=== PATIENT | female | born 1955 | race Caucasian/White ===

== ENCOUNTER 2018-07-23 17:53 | Emergency (ER) | payer OTHER ==
[2018-07-23 19:04] LABS: Absolute Lymphocytes (CBC) 2.1 K/uL (0.7-4.9); Absolute Monocytes 0.6 K/uL (0.1-1.3); Basophils % 1.3 % (0-1.3); Eosinophils % 6.2 % (0-4.4); Hematocrit 40.9 % (36.0-45.0); Lymphocytes % 28.7 % (15.3-44.8); MPV 7.8 fL (7.6-11.3); Monocytes % 8.6 % (3.3-12.3); RBC Red Blood Cell Count 4.42 M/uL (3.86-4.86)
[2018-07-23 19:05] LABS: Protime INR 0.94
[2018-07-23 19:23] LABS: ALT/SGPT 108 U/L (12-78); AST/SGOT 188 U/L (15-37); Albumin 3.6 g/dL (3.4-5.0); Alkaline Phosphatase 121 U/L (45-117); BUN Blood Urea Nitrogen 18 mg/dL (7-18); Bicarbonate 30 mmol/L (21-32); Bilirubin Direct 0.1 mg/dL (0-0.2); Bilirubin Total 0.3 mg/dL (0.2-1.0); Glucose Level 97 mg/dL (74-106); Lipase 155 U/L (73-393); Magnesium 2.3 mg/dL (1.8-2.4); NT PRO-BNP 56 pg/mL (<125); Potassium 4.5 mmol/L (3.5-5.1); Protein, Total 7.3 g/dL (6.4-8.2); Sodium Level 141 mmol/L (136-145); Troponin (Emerg Dept Use Only) < 0.02 ng/mL (0.0-0.045)
--- NOTE | 2018-07-23 19:40 | RAD REPORT ---
EXAM DESCRIPTION: RAD - Chest Single View - 07/23/2018 7:31 pm CLINICAL HISTORY: CHEST PAIN Chest pain. COMPARISON: CHEST PA AND LAT 2 VIEW dated 04/12/2011 FINDINGS: Portable technique limits examination quality. The lungs are grossly clear. The heart is normal in size. No displaced fractures. IMPRESSION: No acute intrathoracic process suspected.
--- NOTE | 2018-07-23 19:46 | EDPHYS ---
Physician Documentation [facility] Name: Iraida Kim Age: 63 yrs Sex: Female : 1955 Arrival Date: 07/23/2018 Time: 17:54 Bed 26 Private MD: Katerina Lutz C ED Physician Ilya Atkins HPI: 07/23 19:42 This 63 yrs old Female presents to ER via Ambulatory with complaints of Chest jr8 Pain, Epigastric Pain. 19:42 The patient or guardian reports chest pain that is located primarily in the substernal jr8 area, epigastric area. Onset: acutely, today. The pain radiates to back. Associated signs and symptoms: The patient has no apparent associated signs or symptoms. The chest pain is described as sharp, stabbing. Duration: The patient or guardian reports a single episode, that is now resolved. Modifying factors: The symptoms are alleviated by nothing. the symptoms are aggravated by nothing. Severity of pain: At its worst the pain was moderate in the emergency department the pain has resolved. The patient has not experienced similar symptoms in the past. The patient has not recently seen a physician. Historical: - Allergies: 18:12 No Known Allergies; ph - PMHx: 18:12 GERD; Hyperlipidemia; ph - PSHx: 18:12 ; Carpal Tunnel Repair; Knee surgery; ph - Immunization history:: Adult Immunizations up to date. - Social history:: Smoking status: Patient/guardian denies using tobacco. - Ebola Screening: : Patient negative for fever greater than or equal to 101.5 degrees Fahrenheit, and additional compatible Ebola Virus Disease symptoms Patient denies exposure to infectious person Patient denies travel to an Ebola-affected area in the 21 days before illness onset. ROS: 19:42 Eyes: Negative for injury, pain, redness, and discharge, ENT: Negative for injury, jr8 pain, and discharge, Neck: Negative for injury, pain, and swelling, Respiratory: Negative for shortness of breath, cough, wheezing, and pleuritic chest pain, Abdomen/GI: Negative for abdominal pain, nausea, vomiting, diarrhea, and constipation, Back: Negative for injury and pain, MS/Extremity: Negative for injury and deformity, Skin: Negative for injury, rash, and discoloration, Neuro: Negative for headache, weakness, numbness, tingling, and seizure. 19:42 Cardiovascular: Positive for chest pain, Negative for edema, orthopnea, palpitations, paroxysmal nocturnal dyspnea. Exam: 19:42 Eyes: Pupils equal round and reactive to light, extra-ocular motions intact. Lids and jr8 lashes normal. Conjunctiva and sclera are non-icteric and not injected. Cornea within normal limits. Periorbital areas with no swelling, redness, or edema. ENT: Nares patent. No nasal discharge, no septal abnormalities noted. Tympanic membranes are normal and external auditory canals are clear. Oropharynx with no redness, swelling, or masses, exudates, or evidence of obstruction, uvula midline. Mucous membranes moist. Neck: Trachea midline, no thyromegaly or masses palpated, and no cervical lymphadenopathy. Supple, full range of motion without nuchal rigidity, or vertebral point tenderness. No Meningismus. Cardiovascular: Regular rate and rhythm with a normal S1 and S2. No gallops, murmurs, or rubs. Normal PMI, no JVD. No pulse deficits. Respiratory: Lungs have equal breath sounds bilaterally, clear to auscultation and percussion. No rales, rhonchi or wheezes noted. No increased work of breathing, no retractions or nasal flaring. Abdomen/GI: Soft, non-tender, with normal bowel sounds. No distension or tympany. No guarding or rebound. No evidence of tenderness throughout. Back: No spinal tenderness. No costovertebral tenderness. Full range of motion. Skin: Warm, dry with normal turgor. Normal color with no rashes, no lesions, and no evidence of cellulitis. MS/ Extremity: Pulses equal, no cyanosis. Neurovascular intact. Full, normal range of motion. Neuro: Awake and alert, GCS 15, oriented to person, place, time, and situation. Cranial nerves II-XII grossly intact. Motor strength 5/5 in all extremities. Sensory grossly intact. Cerebellar exam normal. Normal gait. Vital Signs: 18:11 BP 147 / 85; Pulse 82; Resp 16; Temp 97.9; Pulse Ox 100% on R/A; Weight 63.5 kg; Height ph 5 ft. 3 in. (160.02 cm); Pain 5/10; 18:11 Body Mass Index 24.80 (63.50 kg, 160.02 cm) ph MDM: 18:29 Patient medically screened. jr8 19:43 Data reviewed: vital signs, nurses notes, lab test result(s), EKG, radiologic studies, jr8 plain films, and as a result, I will discharge patient. Data interpreted: Pulse oximetry: on room air is 100 %. Interpretation: normal. Counseling: I had a detailed discussion with the patient and/or guardian regarding: the historical points, exam findings, and any diagnostic results supporting the discharge/admit diagnosis, lab results, radiology results, the need for outpatient follow up, a family practitioner, to return to the emergency department if symptoms worsen or persist or if there are any questions or concerns that arise at home. ED course: Patient still remains asymptomatic. No acute findings on labs. Mild elevation in liver enzymes which is known to patient. History of VILLANUEVA. Recent GB US completed which showed sludge without any other acute findings. Will f/u with PCP. Will come back if worse . 07/23 18:29 Order name: Basic Metabolic Panel; Complete Time: 19:30 mg2 07/23 18:29 Order name: CBC with Diff; Complete Time: 19:09 mg2 07/23 18:29 Order name: LFT's; Complete Time: 19:30 mg2 07/23 18:29 Order name: Magnesium; Complete Time: 19:30 mg2 07/23 18:29 Order name: NT PRO-BNP; Complete Time: 19:30 mg2 07/23 18:29 Order name: PT-INR; Complete Time: 19:09 mg2 07/23 18:29 Order name: Troponin (emerg Dept Use Only); Complete Time: 19:30 mg2 07/23 18:29 Order name: PT-INR [facility] 07/23 18:29 Order name: Troponin (emerg Dept Use Only) [facility] 07/23 18:29 Order name: EKG; Complete Time: 18:30 mg2 07/23 18:29 Order name: Cardiac monitoring; Complete Time: 19:53 mg2 07/23 18:29 Order name: EKG - Nurse/Tech; Complete Time: 19:53 mg2 07/23 18:29 Order name: IV Saline Lock; Complete Time: 19:53 mg2 07/23 18:29 Order name: Labs collected and sent; Complete Time: 19:53 mg2 07/23 18:29 Order name: O2 Per Protocol; Complete Time: 19:53 mg2 07/23 18:29 Order name: O2 Sat Monitoring; Complete Time: 19:53 [facility] [place] 18:29 Order name: XRAY Chest (1 view); Complete Time: 19:42 [facility] 07/23 18:29 Order name: Cardiac monitoring; Complete Time: 19:52 8 07/23 18:29 Order name: EKG - Nurse/Tech; Complete Time: 19:52 8 07/23 18:29 Order name: IV Saline Lock; Complete Time: 19:52 07/23 18:29 Order name: Lipase; Complete Time: 19:30 07/23 19:47 Order name: Urine Dipstick--Ancillary (enter results); Complete Time: 02: eb 07/23 19:47 Order name: Urine --Ancillary (enter results); Complete Time: 02: 07/23 18:29 Order name: Labs collected and sent; Complete Time: 19:53 [facility] 07/23 18:29 Order name: O2 Per Protocol; Complete Time: :53 [facility] 07/23 18:29 Order name: O2 Sat Monitoring; Complete Time: :53 Administered Medications: No medications were administered Disposition: 07/24 09:51 Co-signature as Attending Physician, Ilya Atkins MD I agree with the assessment and saw plan of care. Disposition: 07/23/18 19:45 Discharged to Home. Impression: Chest pain, unspecified, Epigastric pain. - Condition is Stable. - Discharge Instructions: Nonspecific Chest Pain. - Medication Reconciliation Form, Thank You Letter, Antibiotic Education, Prescription Opioid Use form. - Follow up: Katerina Lutz MD; When: 2 - 3 days; Reason: Recheck today's complaints, Continuance of care, Re-evaluation by your physician. - Problem is new. - Symptoms have improved. Signatures: Dispatcher [employer] Ilya Madrid MD MD cha Roszak, Josh, PA PA jr8 Yvonne Quinteros, KAYLIE LOTT Phil Stanford, KAYLIE RN mg2 Sedrick Howard RN RN rv Corrections: (The following items were deleted from the chart) 07/23 18:33 18:30 BASIC METABOLIC PANEL+C.LAB.BRZ ordered. EDMS EDMS 18:33 18:30 CBC+H.LAB.BRZ ordered. EDMS EDMS 18:33 18:30 HEPATIC FUNCTION+C.LAB.BRZ ordered. EDMS EDMS 18:33 18:30 MAGNESIUM+C.LAB.BRZ ordered. EDMS EDMS 18:33 18:30 PROBNP+C.LAB.BRZ ordered. EDMS EDMS 18:35 18:30 Chest Single View+RAD.RAD.BRZ ordered. EDMS EDMS 19:48 19:43 ED course: Patient still remains asymptomatic. No acute findings on labs. Mild jr8 elevation in liver enzymes which is known to patient. History of VILLANUEVA. Will f/u with PCP. Will come back if worse . jr8 20:12 19:45 07/23/2018 19:45 Discharged to Home. Impression: Chest pain, unspecified; rv Epigastric pain. Condition is Stable. Forms are Medication Reconciliation Form, Thank You Letter, Antibiotic Education, Prescription Opioid Use. Follow up: A Lutz; When: 2 - 3 days; Reason: Recheck today's complaints, Continuance of care, Re-evaluation by your physician. Problem is new. Symptoms have improved. jr8
--- NOTE | 2018-07-23 19:46 | ER ---
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 Transition of care: patient was not received from another setting of care. Onset of symptoms was July 23, 2018. Risk Assessment: Do you want to hurt yourself or someone else? Patient reports no desire to harm self or others. Initial Sepsis Screen: Does the patient meet any 2 criteria? No. Patient's initial sepsis screen is negative. Does the patient have a suspected source of infection? No. Patient's initial sepsis screen is negative. Care prior to arrival: None. 18:09 Method Of Arrival: Ambulatory ph 18:09 Acuity: ALFREDO 3 ph Historical: - Allergies: 18:12 No Known Allergies; ph - PMHx: 18:12 GERD; Hyperlipidemia; ph - PSHx: 18:12 ; Carpal Tunnel Repair; Knee surgery; ph - Immunization history:: Adult Immunizations up to date. - Social history:: Smoking status: Patient/guardian denies using tobacco. - Ebola Screening: : Patient negative for fever greater than or equal to 101.5 degrees Fahrenheit, and additional compatible Ebola Virus Disease symptoms Patient denies exposure to infectious person Patient denies travel to an Ebola-affected area in the 21 days before illness onset. Screenin:10 Abuse screen: Denies threats or abuse. Denies injuries from another. Nutritional rv screening: No deficits noted. Tuberculosis screening: No symptoms or risk factors identified. Fall Risk None identified. Assessment: 20:10 General: Appears in no apparent distress. comfortable, Behavior is calm, cooperative. rv Pain: Complains of pain in chest Pain does not radiate. Pain began suddenly. Neuro: Level of Consciousness is awake, alert, obeys commands, Oriented to person, place, time, situation. Cardiovascular: Capillary refill < 3 seconds Rhythm is regular. Respiratory: Reports. Respiratory: Airway is patent. GI: No signs and/or symptoms were reported involving the gastrointestinal system. : No signs and/or symptoms were reported regarding the genitourinary system. EENT: No signs and/or symptoms were reported regarding the EENT system. Derm: Skin is intact. Vital Signs: 18:11 BP 147 / 85; Pulse 82; Resp 16; Temp 97.9; Pulse Ox 100% on R/A; Weight 63.5 kg; Height ph 5 ft. 3 in. (160.02 cm); Pain 5/10; 18:11 Body Mass Index 24.80 (63.50 kg, 160.02 cm) ph ED Course: 17:54 Patient arrived in ED. mr 17:54 Katerina Lutz MD is Private Physician. mr 18:11 Triage completed. ph 18:12 Arm band placed on. ph 18:29 Kristian Arceo PA is PHCP. jr8 18:29 Ilya Atkins MD is Attending Physician. jr8 18:57 Phil Stanford, KAYLIE is Primary Nurse. mg2 19:31 XRAY Chest (1 view) In Process Unspecified. EDMS 19:45 Katerina Lutz MD is Referral Physician. jr8 20:11 Patient has correct armband on for positive identification. Bed in low position. Call rv light in reach. Side rails up X 1. gambling monitor on. Pulse ox on. NIBP on. 20:11 No provider procedures requiring assistance completed. Patient did not have IV access rv during this emergency room visit. Patient maintains SpO2 saturation greater than 95% on room air. Administered Medications: No medications were administered Outcome: 19:45 Discharge ordered by . jr8 20:11 Discharged to home ambulatory. rv 20:11 Condition: good 20:11 Discharge instructions given to patient, Instructed on discharge instructions, follow up and referral plans. Demonstrated understanding of instructions, follow-up care. 20:12 Patient left the ED. rv Signatures: Dispatcher [employer] EDVT Oanh Montes mr Kristian Arceo PA PA jr8 Yvonne Quinteros RN RN Phil Stanford RN RN [facility] Sedrick Howard RN RN rv
[2018-07-23 20:09] LABS: Urine Blood TRACE (NEG); Urine Glucose NEGATIVE (NEG); Urine Protein NEGATIVE (NEG)
--- NOTE | 2018-07-24 08:36 | EKG ---
Test Date: 2018-07-23 Test Time: 17:42:57 [employer] Bleacher: MG MEASUREMENT RESULTS: Intervals: Rate: 67 IN: 148 QRSD: 78 QT: 406 QTc: 429 [place]: P: 62 IN: 148 QRS: 61 T: 51 INTERPRETIVE STATEMENTS: Normal sinus rhythm Normal ECG Compared to ECG 12/17/2002 10:05:00 Sinus bradycardia no longer present Electronically Signed On 07-24-18 08:35:39 CDT by Chaka Dewitt
== END 2018-07-23 20:12 | disposition home or self-care (01) ==
LOC: ER 17:53
DX: R10.13 Epigastric pain (principal)
CPT/HCPCS: 36415; 71045; 80048; 80076; 81003; 81025; 83690; 83735; 83880; 84484; 85025; 85610; 93005; 99284

== ENCOUNTER 2024-07-27 00:52 | Emergency (ER) | payer OTHER ==
--- OUTSIDE RECORDS SUMMARY | 2024-07-27 00:56 | XMS REPORT | Continuity of Care Document ---
Author Name Unknown Address [address] [facility]. [address] [place] [address] Organization [facility] Address [address] [facility] 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 Name Role Phone GC_GCBZW_Kadiyala_S Attending Clinician Unavaila Florina Munoz Attending Clinician Unavaila merna GC_GCBZW_Kadiyala_S Admitting Clinician Unavaila Florina Munoz Admitting Clinician Unavaila merna Payers Payer Name Policy Type Policy Number Effective Date Expirati on Date Source [employer] (MEDICARE REPLACEMENT PPO) [id number] 2022 00:00:00 Problems Condition Name Condition Details Condition Category Status Onset Date Resolution Date Last Treatment Date Treating Clinician Comments Source Genital herpes simplex Genital Herpes Simplex Problem Active 2022-05 004 00:00: 00 [facility] Constipati on Constipati on Problem Active 01-31 00:00: 00 [facility] Female stress incontinen ce Female Stress Incontinen ce Problem Active 12-21 00:00: 00 [facility] Atrophy of vagina Atrophy of Vagina Problem Active 8 00:00: 00 [facility] Hyperlipid emia Hyperlipid emia Problem Active 8 00:00: 00 [facility] Gastroesop hageal reflux disease Gastroesop hageal Reflux Disease Problem Active 8-07 00:00: 00 [facility] Osteopenia Osteopenia Problem Active 8-07 00:00: 00 [facility] Incomplete uterovagin al prolapse Incomplete Uterovagin al Prolapse Problem Active 12-03 00:00: 00 [facility] Urinary incontinen ce Urinary Incontinen ce Problem Active 12-03 00:00: 00 [facility] Midline cystocele Midline Cystocele Problem Active 5- 00:00: 00 [facility] Senile osteoporos is Senile Osteoporos is Problem Active 5- 00:00: 00 [facility] Anogenital herpesvira l infection Anogenital Herpesvira l Infection Problem Active 01-15 00:00: 00 [facility] Atrophic vaginitis Atrophic Vaginitis Problem Active 5-05 00:00: 00 [facility] Bone density finding Bone Density Finding Problem Active 5- 00:00: 00 [facility] Screening mammograph y Screening Mammograph y Problem Active 5-05 00:00: 00 [facility] Allergies, Adverse Reactions, Alerts Allergy Name Allergy Type Status Severity Reaction(s) Onset Date Inactive Date Treating Clinician Comments Source No Known Allergie s DA Active U 318 00:00: [address] [facility] Chlorhex idine Allergy to substanc e Active Rash [facility] Social History Smoking Status Start Date Stop Date Source Never Smoker [facility] Medications Ordered Medication Name Filled Medication Name Start Date Stop Date Current Medication? Ordering Clinician Indication Dosage Frequency Signature (SIG) Comments Components Source biotin biotin No biotin [facility] calcium calcium No calcium [facility] esomeprazol e magnesium 20 mg capsule,del ayed release Take 1 capsule every day by oral route. esomeprazol e magnesium 20 mg capsule,del ayed release Take 1 capsule every day by oral route. No 1capsul e(s) Q1D esomeprazo le magnesium 20 mg capsule,de layed release Take 1 capsule every day by oral route. [facility] montelukast 10 mg tablet Take 1 tablet as needed by oral route. montelukast 10 mg tablet Take 1 tablet as needed by oral route. No 1 montelukas t 10 mg tablet Take 1 tablet as needed by oral route. [facility] Yuvafem 10 mcg vaginal tablet INSERT 1 TABLET VAGINAL TWO TIMES A WEEK X 90 DAY(S) Yuvafem 10 mcg vaginal tablet INSERT 1 TABLET VAGINAL TWO TIMES A WEEK X 90 DAY(S) No Yuvafem 10 mcg vaginal tablet INSERT 1 TABLET VAGINAL TWO TIMES A WEEK X 90 DAY(S) [facility] multivitami n multivitami n No multivitam in [facility] rosuvastati n rosuvastati n No rosuvastat in [facility] Zyrtec Zyrtec No Zyrtec [facility] Vital Signs Vital Name Observation Time Observation Value Comments S ource Height 2024-01-11 00:00:00 62 [facility] Systolic 2024-01-11 00:00:00 106 mm[Hg] [facility] BP Diastolic 2024-01-11 00:00:00 69 mm[Hg] [facility] BMI (Body Mass Index) 2024-01-11 00:00:00 24.2 kg/m2 [facility] Body Weight 2024-01-11 00:00:00 132.2 [lb_av] [facility] Procedures Procedure Date / Time Performed Performing Clinicia n Source MAMMO, screening, digital, bilateral 2024-01-11 00:00:00 [facility] Procedure on Shoulder 2023-09-14 00:00:00 [facility] Hysterectomy 2023-02-24 00:00:00 [facility] Cystoscopy 2022-12-03 00:00:00 [facility] Oral / Dental Surgery 2022-08-14 00:00:00 [facility] Orthopedic - Knee Replacement [facility] Carpal Tunnel Surgery [facility] Delivery [facility] ical Encounters Start Date/Time End Date/Time Encounter Type Admission Type Attending Clinicians Care Facility Care Department Encounter ID Source 2024-01-11 00:00:00 2024-01-11 00:00:00 MICHELLE Stoner: Michelle Price, [address], [place] [address] , Ph. [facility] - GC_GCBZW_Bere villegas Christian* [id number] [facility] 2023-07-13 00:00:00 2023-07-13 00:00:00 Outpatient GC_GCBZW_Ka diyala_S PRIV PRIV [id number] [facility] 2023-07-13 00:00:00 2023-07-13 00:00:00 MICHELLE Stoner: Michelle Price, [address], [place] [address] , Ph. [facility] - GC_GCBZW_Bere [facility]* [id number] [facility] 2023-07-12 00:00:00 2023-07-12 00:00:00 Outpatient GC_GCBZW_Ka diyala_S PRIV PRIV [id number] [facility] 2023-04-12 00:00:00 2023-04-12 00:00:00 Outpatient GC_GCBZW_Ka diyala_S PRIV PRIV [id number] [facility] 2023-03-02 00:00:00 2023-03-02 00:00:00 Outpatient GC_GCBZW_Ka diyala_S PRIV PRIV [id number] [facility] 2023-03-02 00:00:00 2023-03-02 00:00:00 Outpatient GC_GCBZW_Ka diyala_S PRIV PRIV [id number] [facility] 2023-02-24 05:26:00 2023-02-25 11:01:00 Inpatient Florina Hernandez [facility].01 [id number] 68 [facility] 2023-02-16 00:00:00 2023-02-16 00:00:00 Outpatient GC_GCBZW_Ka diyala_S PRIV PRIV [id number] [facility] 2023-02-16 00:00:00 2023-02-16 00:00:00 Outpatient GC_GCBZW_Ka diyala_S PRIV PRIV [id number] [facility] 2023-02-07 00:00:00 2023-02-07 00:00:00 Outpatient GC_GCBZW_Ka diyala_S PRIV PRIV [id number] [facility] 2023-01-31 00:00:00 2023-01-31 00:00:00 Outpatient GC_GCBZW_Ka diyala_S PRIV PRIV [id number] [facility] 2023-01-31 00:00:00 2023-01-31 00:00:00 Outpatient GC_GCBZW_Ka diyala_S PRIV PRIV [id number] [facility] 2022-12-21 00:00:00 2022-12-21 00:00:00 Outpatient GC_GCBZW_Ka diyala_S PRIV PRIV [id number] [facility] 2022-12-03 00:00:00 2022-12-03 00:00:00 Outpatient GC_GCBZW_Ka diyala_S PRIV PRIV [id number] [facility] 2022-12-03 00:00:00 2022-12-03 00:00:00 Outpatient GC_GCBZW_Ka diyala_S PRIV PRIV [id number] [facility] Results Test Description Test Time Test Comments Results Result Co mments Source [id number] 05:21:00* Test Item Value Reference Range Interpretation Comme nts CREATININE (test code = CREAT) 0.9 MG/DL 0.6-1.0 N Comment: Stat creatinine if not already performedCBC W/AUTO [id number] 05:10:00* Test Item Value Reference Range Interpretation Comme nts WHITE BLOOD CELL (test code = WBC) 11.2 K/mm3 3.5-11.0 H RED BLOOD CELL (test code = RBC) 3.73 M/mm3 4.70-6.10 L HEMOGLOBIN (test code = HGB) 11.4 G/DL 10.4-14.9 N HEMATOCRIT (test code = HCT) 35.0 % 31.5-44.1 N MEAN CELL VOLUME (test code = MCV) 93.8 Fl 84.5-98.6 N MEAN CELL HGB (test code = MCH) 30.6 pg 27.0-34.2 N MEAN CELL HGB CONCETRATION (test code = MCHC) 32.6 G/DL 31.5-34.0 N RED CELL DISTRIBUTION WIDTH (test code = RDW) 12.5 SD 11.5-14.5 N PLATELET COUNT (test code = PLT) 234 K/mm3 150-450 N MEAN PLATELET VOLUME (test c ode = MPV) 9.70 fL 7.0-10.5 N NEUTROPHIL % (test code = NT%) 78.8 % 40-76 H IMMATURE GRANULOCYTE % (test code = IG%) 0.4 % 0.0-5.0 N LYMPHOCYTE % (test code = LY%) 13.7 % 20.5-51.1 L MONOCYTE % (test code = MO%) 6.6 % 1.7-9.3 N EOSINOPHIL % (test code = EO%) 0.3 % 0.0-6.0 N BASOPHIL % (test code = BA%) 0.2 % 0.0-2.0 N NUCLEATED RBC % (test code = NRBC%) 0.0 /100WBC% 0.0-1.0 N NEUTROPHIL # (test code = NT#) 8.8 K/mm3 1.8-7.6 H IMMATURE GRANULOCYTE # (test code = IG#) 0.04 x10 3/uL 0.00-0.03 H LYMPHOCYTE # (test code = LY#) 1.5 K/mm3 0.6-3.2 N MONOCYTE # (test code = MO#) 0.7 K/mm3 0.3-1.1 N EOSINOPHIL # (test code = EO#) 0.0 K/mm3 0.0-0.4 N BASOPHIL # (test code = BA#) 0.0 K/mm3 0.0-0.1 N NUCLEATED RBC # (test code = NRBC#) 0.0 K/mm3 0.0-0.1 N MANUAL DIFF REQUIRED (test c ode = MDIFF) NO DIFF/SCN CRITERIA BASIC METABOLIC [id number] 15:27:00* Test Item Value Reference Range Interpretation Comme nts SODIUM (test code = NA) 141 mmol/L 134-147 N POTASSIUM (test code = K) 3.3 mmol/L 3.4-5.0 L CHLORIDE (test code = CL) 106 mmol/L 100-108 N CARBON DIOXIDE (test code = CO2) 30 mmol/L 21-32 N ANION GAP (test code = GAP) 5.0 GAP calc 4.0-15.0 N GLUCOSE (test code = GLU) 109 MG/DL 70-110 N BLOOD UREA NITROGEN (test code = BUN) 21 MG/DL 7-18 H GLOMERULAR FILTRATION RATE (test code = GFR) >=60 max estimate estGFR >60 The Glomerular Filtration Rate is a calculated parameterbased on serum Creatinine, patient age and sex. GFR valuesless than 60 mL/min/1.73 square meters are indicative ofChronic Kidney Disease. Values less than 15 mL/min/1.73square meters indicate Kidney failure. The calculation forGFR is based on the CKD-EPI (202) calculation. This formulais race indifferent and is the recommended formula for GFRby the National Kidney Foundation for Adults.The GFR will not calculate if the sex is unknown or if thepatient's age is <18 years. CREATININE (test code = CREAT) 1.0 MG/DL 0.6-1.0 N CALCIUM (test code = CA) 9.1 MG/DL 8.5-10.1 N CBC W/AUTO [id number] 14:43:00* Test Item Value Reference Range Interpretation Comme nts WHITE BLOOD CELL (test code = WBC) 6.0 K/mm3 3.5-11.0 N RED BLOOD CELL (test code = RBC) 4.22 M/mm3 4.70-6.10 L HEMOGLOBIN (test code = HGB) 12.8 G/DL 10.4-14.9 N HEMATOCRIT (test code = HCT) 39.8 % 31.5-44.1 N MEAN CELL VOLUME (test code = MCV) 94.3 Fl 84.5-98.6 N MEAN CELL HGB (test code = MCH) 30.3 pg 27.0-34.2 N MEAN CELL HGB CONCETRATION (test code = MCHC) 32.2 G/DL 31.5-34.0 N RED CELL DISTRIBUTION WIDTH (test code = RDW) 12.3 SD 11.5-14.5 N PLATELET COUNT (test code = PLT) 278 K/mm3 150-450 N MEAN PLATELET VOLUME (test c ode = MPV) 9.40 fL 7.0-10.5 N NEUTROPHIL % (test code = NT%) 65.2 % 40-76 N IMMATURE GRANULOCYTE % (test code = IG%) 0.2 % 0.0-5.0 N LYMPHOCYTE % (test code = LY%) 24.5 % 20.5-51.1 N MONOCYTE % (test code = MO%) 6.4 % 1.7-9.3 N EOSINOPHIL % (test code = EO%) 2.9 % 0.0-6.0 N BASOPHIL % (test code = BA%) 0.8 % 0.0-2.0 N NUCLEATED RBC % (test code = NRBC%) 0.0 /100WBC% 0.0-1.0 N NEUTROPHIL # (test code = NT#) 3.9 K/mm3 1.8-7.6 N IMMATURE GRANULOCYTE # (test code = IG#) 0.01 x10 3/uL 0.00-0.03 N LYMPHOCYTE # (test code = LY#) 1.5 K/mm3 0.6-3.2 N MONOCYTE # (test code = MO#) 0.4 K/mm3 0.3-1.1 N EOSINOPHIL # (test code = EO#) 0.2 K/mm3 0.0-0.4 N BASOPHIL # (test code = BA#) 0.1 K/mm3 0.0-0.1 N NUCLEATED RBC # (test code = NRBC#) 0.0 K/mm3 0.0-0.1 N MANUAL DIFF REQUIRED (test c ode = MDIFF) NO DIFF/SCN CRITERIA PROTHROMBIN [id number] 14:43:00* Test Item Value Reference Range Interpretation Comme nts PT PATIENT (test code = PTP) 10.9 SECONDS 9.3-12.9 N INTERNATIONAL NORMAL RATIO (test code = INR) 0.98 INR Unit 0.8-1.2 N TARGET INR BY INDICATION Indication INR1. Prophylaxis of venous thrombosis 2.0 - 3.0 (orthopedic surgery), Prophylaxis of venous thrombosis (other than high-risk surgery), Treatment of Deep Vein Thrombosis/Pulmonary Embolism, Prevention of systemic embolism - Tissue heart valves, Acute Myocardial Infarction (to prevent systemic embolism), Valvular heart disease, Acute Myocardial Infarction (to prevent systemic embolism), Valvular heart disease, Atrial Fibrillation, Bileaflet mechanical valve in aortic position.2. Mechanical prosthetic valves (high risk), 2.5 - 3.5 Presence of Lupus Anticoagulant or Antiphospholipid Antibodies, Prevention of systemic embolism - Acute Myocardial Infarction (to prevent recurrent infarct). Comment: PREOPTHROMBOPLASTIN TIME [id number] 14:43:00* Test Item Value Reference Range Interpretation Comme nts THROMBOPLASTIN TIME PARTIAL (test code = PTT) 34.4 SECONDS 26-35 N Comment: PREOP- XR CHEST 1 [id number] 14:28:[address] [facility] 1955 Sex: F Name: KINGSTON GOULD [facility] : 1955 Age/S: 67 / F [id number] Unit #: [id number] Loc: [place] [address] Phys: Nagi Bell MD Acct: [id number] Dis Date: Status: PRE [facility] PHONE #: [phone] Exam Date: 02/21/2023 1420 FAX #: Reason: PREOP EXAMS: CPT: [id number] XRCHEST 1 V [id number] Fluoro Time: DAP (Gy m2): Air Kerma (mGy): EXAM: - XR CHEST 1 V HISTORY: PREOP LOCATION CODE:T18 TECHNIQUE: Frontal radiograph of the chest. COMPARISON: None. FINDINGS: Normal heart size. No focal airspace consolidation. No pulmonary edema, pleural effusion or pneumothorax. Imaged osseous structures are without acute abnormality. IMPRESSION: No radiographic evidence of acute cardiopulmonary disease. at 1428 Reported and signed by: Jamal Quesada M.D. CC: Florina Duval MD; Nagi Bell MD PAGE 1 SignedReport Name: KINGSTON GOULD [facility] : 1955 Age/S: 67 / F [id number] [id number] Loc: [place] [address] Phys: Nagi Bell MD Acct: [id number] Dis Date: Status: PRE SDC PHONE #: [phone] Exam Date: 02/21/2023 1420 FAX #: Reason: PREOP EXAMS: CPT: [id number] XR CHEST 1 V [id number] Fluoro Time: DAP (Gy m2): Air Kerma (mGy): (Continued) Technologist: Karolyn Pelaez Trnscb Date/Time: 02/21/2023 (1427) [id number] Orig Print D/T: S: 02/21/2023 (3682) PAGE 2 Signed ReportUR HCG QUAL 2023-02-21 14:26:00* Test Item Value Reference Range Interpretation Comme nts UR HCG QUAL (test code = HCGQLU) NEGATIVE NEGATIVE Notes Date/Time Note Provider Source 2023-02-27 16:38:00 [id number] [facility] [address] [place] [address] PATIENT NAME: KINGSTON GOULD ADMIT DATE: 02/24/23 ACCOUNT NO: [id number] ROOM NO: [id number] AGE: 67 REPORT TYPE: OPERATIVE REPORT SEX: F ADMITTING PHYSICIAN: Florina Duval MD ATTENDING PHYSICIAN: Florina Duval MD OPERATION DATE: 02/24/2023 PREOPERATIVE DIAGNOSES: Stage II uterovaginal prolapse, posterior wall prolapse. POSTOPERATIVE DIAGNOSES: Stage II uterovaginal prolapse, posterior wall prolapse, anterior wall apical, lateral wall defects, posterior wall defect and perineal defect, pericolic adhesions and periappendiceal adhesions. PROCEDURES PERFORMED: 1. Robotic-assisted total laparoscopic hysterectomy, bilateral salpingo-oophorectomy. 2. Laparoscopic sacral colpopexy. 3. Lysis of adhesions from the cecum, sigmoid, small bowel, appendix, cystoscopy. 4. Posterior repair and perineorrhaphy. SURGEON: Florina Duval MD CHIMNEY MECHANIC: Antonieta Cat. ANESTHESIA: General endotracheal. FINDINGS: Adhesions of the cecum, appendix ____ sigmoid. POP-Q -2, -2, 0, 3.5, moderate 0, -1, -3 while the patient down under anesthesia. Patent ureters on cystoscopy, ____ was placed and tacked to the anterior ____. Posterior wall site specific defect repair was performed. COMPLICATIONS: No complications. ESTIMATED BLOOD LOSS: 50 mL. SPECIMENS: Uterus, tubes and ovaries. DRAINS: Wheeler catheter and vaginal packing was placed. IMPLANTS: Upsylon Y mesh. FLUIDS: 1500 mL. URINE OUTPUT: 150 mL PATIENT NAME: KINGSTON GOULD APPROACH: Robotic, laparoscopic and vaginal. COUNTS: Correct. PATIENT'S CONDITION: Stable. INDICATIONS: The patient is a longstanding patient ____ with prolapse. She has been treated conservatively with pelvic floor therapy with bowel management, still continues to suffer from constipation and occasional straining. Other than this, her prolapse has been symptomatic and we discussed about benefits, risks of surgery and she has contemplated for good period of time. Eventually, she desired a surgery with at least recurrence, did not have any strong reservations to vaginal mesh and all the benefits, risks, and complications, longevity of the repair compared to the side effects and complications were discussed and she wanted to ____ for reliable otherwise with a sacral colpopexy. On urodynamic testing, no occult JANA was noted; however, she was consented for a possible sling ____ prolapse repair. There was evidence of stress incontinence. Then, she also was consented for posterior wall defect repair and perineorrhaphy. She was consented and brought to the OR. Her was present by the side in the preoperative area. After questions and answers were done to their satisfaction, she was taken back. DESCRIPTION OF PROCEDURE: She was placed in supine fashion on the operating table. General anesthesia was given. She was placed in dorsal lithotomy position using Imcah stirrups. Abdomen prepped with ChloraPrep. Vulva, vagina, and perineum with Betadine. She was draped in a sterile fashion. Arms tucked by the side. Positioning was checked. SCDs were started. Timeout was done. Speculum was placed to expose the cervix. Anterior lip was grasped with a single tooth tenaculum, dilated to 16-Maltese and a medium VCare was introduced and cup was fixed in place. Wheeler was placed to drain the bladder and attached to drainage bag and left to gravity. This area was draped. A 1 cm supraumbilical incision was made with a scalpel using open laparoscopy technique. Fascia was incised, tagged with 0 Vicryl sutures. Peritoneum entered sharply. Breann was introduced and site of entry was checked and was unremarkable. There was significant amount of bowel adhesions in the lower right and left quadrants. Robotic ports were placed, arms 3 and 4 on the right and arm 1 and assist port on the left. All trocars were placed under direct vision. The patient was placed in Trendelenburg position at 21 degrees and then the robot was docked on the patient's left attached to the port #2. Once the camera was introduced and targeting was performed, all the ports were connected. Instruments were placed appropriately and inserted to the pelvis under direct vision. Bipolar fenestrated grasper through arm #1 and scissors through arm #3 and cardia forceps through arm #4 were placed. I went to the console and started the lysis of adhesions. Lysis of adhesions: The right lower quadrant was well visualized. Small bowel was retracted from the pelvic cavity to the upper abdomen. Then, carefully the cecal adhesions were taken down systematically with sharp scissors all the way in the right lower quadrant to the right paracolic gutter. Adhesions were taken down sharply using cautery in a very spared manner. PATIENT NAME: KINGSTON GOULD The small bowel, which is a terminal ileum was also attached to the right lower quadrant. The ureter was visualized and ____ were taken down systematically with sharp scissors. Once all this was done, hemostasis was secured and ____ with the right lower quadrant and sigmoid adhesions were taken down to expose the ____. Once all these were done, the bowel was slipped to the upper abdomen, I needed 21 degrees of Trendelenburg. The above took at least 30-40 minutes of the case. Hysterectomy. The round ligament was picked up with the cardia and lateral peritoneum was incised parallel to the IP ports in the anterior and posteriorly. Dissection was performed between the IP and the lateral wall and between the ureter. The pedicle was isolated and round ligament pedicle was also isolated by incising the anterior leaf of the broad ligament inferior to the round ligament on the right side. Once this pedicle was isolated, I went over to the opposite side, we proceeded in the left direction of the round ligament, IP ligament exposing the IP and ureters were safe guarded. The ligaments were cauterized and cut with bipolar and taken down with monopolar scissors. IP taken down first, round ligament next and posterior peritoneum incised all the way to the distal part of the cup. The left uterosacral ligament was very visible and it was a good target for suspension. However, on the right side, it was not visible, very difficult to identify and grasp it as it had detached and it was very lax. Anterior peritoneum opened up to the bladder flap. Bladder flap was created with monopolar scissors. Then, bladder was dissected anteriorly from the anterior vaginal wall. Vessels were isolated laterally and they were taken down with the help of the bipolar grasper and monopolar scissors. Then, anterior and posterior colpotomies were performed. Then, circumferentially vessels were taken down and the fascia was cut. Circumferential colpotomy was completed and specimen pulled out through the vagina, tubes, and ovaries and the vaginal occluder was placed. Thorough irrigation and suction of the pelvis was performed. Hemostasis was secured with the bipolar. Two angle sutures were placed with 1 Vicryl. Another simple suture was placed on the right lateral aspect immediately medial to the 1 Vicryl stitch with 1 Vicryl. Then, 2-0 V-Loc was used to close the entire vaginal cuff in 2 layers imbricating the first layer with the second one, but grasping both connective tissue as well as the vaginal epithelium. There was an excellent closure and thorough hemostasis. Sacral colpopexy dissection of the anterior vaginal wall: The bladder was picked up gently with the help of Faisal, retrograde filled with 100 mL of normal saline. Dissection was carried between the anterior vaginal wall without entering the vesicovaginal space, keeping the vaginal dissection thick and then opening up the bladder plain and the bladder from the anterior vaginal wall in the midline first, then laterally, windows were made and mostly scissors were used to cut occasionally using monopolar and bipolar cautery for hemostasis. Once 3.5 cm of the anterior vaginal wall was exposed, then the dissection was complete. Posterior vaginal dissection: The peritoneum was retracted inferiorly. Incision made between the vaginal wall and the rectovaginal in the cul-de-sac. The peritoneum was taken down, staying close to the posterior vaginal wall and PATIENT NAME: KINGSTON GOULD the loose areolar tissue. The dissection was performed in an avascular plane going down in the midline for at least 7 cm. Once I was able to get for this down, then laterally dissection was carried at least for 5-6 cm wide. Once all the rectum was dropped down, then attention was directed to dissection at the sacrum. Sacral dissection: The bowel and the mesentery were picked up immediately lateral to the area of S1 after the common iliac and the ureters were identified on the right side and laterally, the bowel and the middle sacral vessels were seen making a peritoneal incision superficially in this area. The gas was dissected the loose areolar tissue giving me entry to the anterior longitudinal ligament. Once this was visualized, more dissection was performed carefully without serving any presacral nerves to get to the anterior ligament, at least 1.5 cm space was created, entered vertically as well as horizontally. Then, the incision on the peritoneum was carefully kept superficial, dissection opened up with scissors and then cut with cold scissors all the way down, staying between the right lateral wall of the rectum/sigmoid colon and the right ureter passing the area of the uterosacral ligament to connect the dissection to the posterior wall vaginal dissection. The space was lined up with gentle traction on each side to the flaps, then Y mesh was trimmed. A 5 cm of the anterior arm and 8 cm of the posterior arm were trimmed with 7 cm to be tacked. The mesh was brought in. Anterior arm was attached first in the midline distal with a 2-0 Vicryl stitch on a CT-2 needle, then proximal and middle suture was placed and laterally, 2 sutures each next to the Vicryl sutures. Once these were all placed, the anterior arm was well fixated from end to end and from top down. At least 1.5 cm of the mesh was still in the area to give redundancy to the vaginal apex, so it is not touching the junction of the anterior, posterior arms. Posteriorly, the arm was opened up and similar sutures were placed distally with 2-0 Vicryl proximally at the area below the cuff line. The suture was placed. Then, 2 sutures lateral to each of them and then 2 center sutures were placed to lay the mesh completely flat and make it remain attached to the fascia. Once this was done, the sacral arm was rolled up. The sacrum was well visualized. Tensioning was performed at least by holding 5-6 cm of the arm at the level of the sacrum and allowing the vaginal retractor to come out. There was excellent lift without too much tension on the sacral arm, however, with adequate tension, so this was the area that was marked. Then, 2-0 Ethibond suture was brought in x2 and placed in the mesh anterior longitudinal ligament and back through the mesh. This was tied down using 2 sliding knots and then secured with the help of square knots. Similar suture was placed proximally to this as well to secure the mesh again in the center and once this was done, the extra mesh was trimmed. Thus, the mesh was buried underneath and keeping it to lay flat. Then, 2-0 V-Loc was taken and starting at the level of the uterosacral. The peritoneum was closed first and then ran this in a continuous running fashion all the way to the top of the sacrum on the peritoneum. Then, inferiorly, the same suture was started in the left lateral angle and anterior, posterior peritoneum were brought together to conceal the entire mesh from lateral to medial, from left to right and then completed at the area where the top stitch was started. PATIENT NAME: KINGSTON GOULD Retroperitonealization: There is no evidence of any exposure to the mesh. Thorough irrigation and suction were performed. There was excellent hemostasis on all pedicles. All the arms were undocked. Once they were freed up under direct visualization, the instruments were removed. The ports were removed. Gas was desufflated. Supraumbilical trocar was removed. Fascia was tied together to close the fascial incision and skin incisions closed with interrupted 4-0 Monocryl and bandages placed. Cystoscopy was performed after removing the Wheeler with excellent patency of the ureters with good jets of urine. No evidence of any foreign body or mesh in the bladder or sutures. No evidence of any other problems. The bladder was filled with 300 to perform a Valsalva under anesthesia. Once this was done, there was no leakage. No hypermobility of the urethra, good support at the neck. Wheeler was reintroduced and clamped and retracted superiorly. Posterior repair was performed. A felisa-shaped incision that was made with detachment of the distal rectovaginal septum from the perineal body in a Y shaped fashion, so after injecting 1% lidocaine with epinephrine 20 mL in the lower one-third of the vaginal wall and the perineum. Felisa-shaped incision was made and the epithelium was then taken down. Fascia was exposed. Flaps were raised the vaginal epithelium from the underlying connective tissue superiorly all the way and then down laterally to expose the perineal body structures. The perineal body structures were reconstructed with the help of interrupted and continuous 2-0 Vicryl sutures from [id number] in 2 layers. Then, superiorly the rectovaginal septum distal part was pulled down and attached in the continuous running fashion with the help of 2-0 Vicryl from [id number]. Once this was done, there was excellent continuation. However, the lower one-third that did not have any mesh because the mesh repair stopped in the junction between the lower one-third and the upper two-thirds, but this fascia was intact and it appeared that the colpopexy mesh was attached to the top of the fascia and now the distal part of the fascia was reattached to perineal body, so there is good ____. Vaginal epithelium was closed with the help of 2-0 Vicryl suture in a continuous running fashion. Perineorrhaphy was performed as I dictated. The Wheeler was left in place. Vaginal packing was inserted. She was recovered from anesthesia and taken to PACU in stable condition and her was debriefed about her procedure and she will stay overnight and discharged home after voiding trial. Dictated By: Florina Duval MD Date Dictated: 02/27/2023 16:38:05 Date Transcribed: 02/27/2023 21:11:02 VIOLETTA/CHINTAN/JACQUELINE/ERICK Receipt ID: [id number] Authenticated by Florina Duval MD On 04/21/2023 11:41:13 AM PATIENT NAME: KINGSTON GOULD at 1141 PATIENT NAME: KINGSTON GOULD [facility] 2023-02-24 14:34:00 [facility] ([facility]) Brief Op Note REPORT#:[id number] REPORT STATUS: Signed REPORT INITIALIZATION DATE:02/24/23 TIME:1433 PATIENT: KINGSTON GOULD UNIT #: [id number] ROOM/BED: [place] [address] : 56 AGE: 67 SEX: F ATTEND: Florina Duval MD ADM AUTHOR: Florina Duval MD REPT SERVICE DT/TIME: 02/24/231433 * ALL edits or amendments must be made on the electronic/computer document * Op/Inv Proc Note - Brief Pre-procedure diagnosis: stage 2 uterovaginal prolapse, posterior wall prolapse Post-procedure diagnosis: same as pre procedure dx, anterior wall, apical Level1 defects, Posterior wall defect and perineal defect Procedures performed: RTLH BSO SCP, ANDREW cecal sigmoid and small bowel, cystoscopy, posterior repair and perineorrhaphy Primary Surgeon: keith Erosion Control Coordinator(s): rsoina ghosh Anesthesia: general anesthesia Findings: adhesions of cecum appendix and sigmoid , redundant sigmoid, -2/-2/0/3.5/mod/7/0 /-1/-3, patent ureters, y-mesh placed, Ant long ligament, ethibond sutures x2, post repair SSDR done Complications: none Estimated blood loss in ml's: 50 Specimens removed/altered: uterus tubes and ovaries Drain(s): Wheeler Catheter Placed Implant(s): upsylon Y mesh Fluids: 1300 Urine output: 150 Approach: laparoscopic, robotic and vaginal Wound class: clean/contaminated Disposition: MEDSURG Counts: Sponge count: correct Instrument count: correct Needle count: correct at 1440 RPT #: [id number] END OF REPORT [facility]
[2024-07-27] MEDS ORDERED: NA CHLORIDE 0.9% 1,000 ML ONE (01:27)
[2024-07-27 01:33] LABS: Absolute Eosinophils 0.4 K/uL (0-0.5); Absolute Lymphocytes (CBC) 2.5 K/uL (0.7-4.9); Absolute Monocytes 0.6 K/uL (0.1-1.3); Absolute Neutrophil 2.8 K/uL (1.8-8.0); Basophils % 0.8 % (0-1.3); Eosinophils % 6.5 % (0-4.4); Hematocrit 34.6 % (36.0-45.0); Hemoglobin 11.7 g/dL (12.0-15.0); Lymphocytes % 39.5 % (15.3-44.8); MCH 31.3 pg (27.0-35.0); MCHC 33.9 g/dL (32.0-36.0); MCV 92.3 fL (80-100); Monocytes % 9.5 % (3.3-12.3); Neutrophils % 43.7 % (41.7-73.7); Platelets 266 thou/uL (152-406); RBC Red Blood Cell Count 3.75 M/uL (3.86-4.86); Red Cell Distribution Width 12.3 % (12.1-15.2)
[2024-07-27 01:41] LABS: PT Prothrombin Time 10.9 SECONDS (10-13.0); Protime INR 0.95
[2024-07-27 01:50] LABS: ALT/SGPT 33 U/L (13-56); Albumin 2.9 g/dL (3.4-5.0); Albumin/Globulin Ratio 0.9 (1.1-1.8); Alkaline Phosphatase 101 U/L (45-117); Anion Gap 8.5 mEq/L (5.0-15.0); BUN Blood Urea Nitrogen 21 mg/dL (7-18); Bicarbonate 29 mEq/L (21-32); Bilirubin Total 0.3 mg/dL (0.2-1.0); Globulin 3.1 g/dL (2.3-3.5); Glomerular Filtration Rate 72 ml/min (=/>90); Glucose Level 137 mg/dL (74-106); NT PRO-BNP 57 pg/mL (<125); Sodium Level 142 mEq/L (136-145); Troponin High Sensitivity 4.5 pg/mL (<58.9)
[2024-07-27 01:55] LABS: AST/SGOT 38 U/L (15-37); Bilirubin Direct < 0.2 mg/dL (0-0.2); Bilirubin Indirect, Calculated 0.1 mg/dL (0.2-0.8); Potassium 3.5 mEq/L (3.5-5.1)
--- NOTE | 2024-07-27 02:39 | ER ---
Nurse's Notes [facility] [place] Name: Iraida Kim Age: 69 yrs Sex: Female : 1955 Arrival Date: 07/27/2024 Time: 00:52 Bed 2 Private MD: Diagnosis: Acute cannabis intoxication, Near syncopal episode Presentation: 07/27 01:00 Chief complaint: EMS states: pt takes 1 CBD gummies around around 2130 and 1 hr [employer]ILD [employer] pt rg5 woke up having some hallucination, muscle tremors, weakness \T\ dizziness. 01:00 Coronavirus screen: Client denies travel out of the [place] in the last 14 days. Ebola rg5 Screen: Patient negative for fever greater than or equal to 101.5 degrees Fahrenheit, and additional compatible Ebola Virus Disease symptoms. Initial Sepsis Screen: Does the patient meet any 2 criteria? No. Patient's initial sepsis screen is negative. Does the patient have a suspected source of infection? No. Patient's initial sepsis screen is negative. Risk Assessment: Do you want to hurt yourself or someone else? Patient reports no desire to harm self or others. Onset of symptoms was July 27, 2024. 01:00 Method Of Arrival: EMS: [facility] rg5 01:00 Acuity: ALFREDO 3 rg5 01:00 Care prior to arrival: Medication(s) given: Normal saline infusion, at KVO rate IV rg5 initiated. 18 GA, in the left antecubital area, Oxygen administered. via nasal cannula. Triage Assessment: 01:00 General: Appears in no apparent distress. comfortable, Behavior is calm, cooperative, rg5 appropriate for age. Pain: Denies pain. EENT:. Neuro: Level of Consciousness is awake, alert, obeys commands, Oriented to person, place, time, situation. Neuro: Reports dizziness, weakness. Cardiovascular: Patient's skin is warm and dry. Cardiovascular: Reports palpitations. Respiratory: Airway is patent Trachea midline Respiratory effort is even, unlabored, Respiratory pattern is regular, symmetrical. GI: Abdomen is round non-distended. : No signs and/or symptoms were reported regarding the genitourinary system. Derm: Skin is intact, Skin is dry, Skin is normal. Musculoskeletal: Circulation, motion, and sensation intact. Range of motion: intact in all extremities. Historical: - Allergies: 01:00 chlorhexidine (bulk); rg5 01:00 seasonal allergy; rg5 - Immunization history:: Adult Immunizations up to date. - Infectious Disease History:: Denies. - Social history:: Smoking status: Patient denies any tobacco usage or history of. - Family history:: not pertinent. Screenin:00 [facility] ED Fall Risk Assessment (Adult) History of falling in the last 3 months, rg5 including since admission No falls in past 3 months (0 pts) Confusion or Disorientation No (0 pts) Intoxicated or Sedated Yes (3 pts) Impaired Gait Yes (1 pt) Mobility Assist Device Used No (0 pt) Altered Elimination No (0 pt) Score/Fall Risk Level 3 or more points = High Risk Oriented to surroundings, Maintained a safe environment, Provided non-skid footwear, Hourly rounding (assess needs \T\ fall precautionary measures) done. Abuse screen: Denies threats or abuse. Nutritional screening: No deficits noted. Tuberculosis screening: No symptoms or risk factors identified. Assessment: 01:00 Neuro: Reports dizziness, weakness. rg5 02:18 Reassessment: Patient appears in no apparent distress at this time. Patient and/or bm8 family updated on plan of care and expected duration. Pain level reassessed. Patient is alert, oriented x 3, equal unlabored respirations, skin warm/dry/pink. pt able to ambulate more than 120 feet unassisted to restroom. denies any dizziness at this time Patient denies pain at this time. Patient states feeling better. Patient states symptoms have improved. Pain: Denies pain. Pain does not radiate. Pain began denies pain. Vital Signs: 01:00 BP 132 / 79; Pulse 92; Resp 19; Temp 97.6; Pulse Ox 100% on R/A; Weight 63.5 kg; Height rg5 5 ft. 3 in. ; Pain 0/10; 02:18 BP 132 / 85; Pulse 86; Resp 17; Temp 97.6; Pulse Ox 100% ; Pain 0/10; bm8 01:00 Body Mass Index 24.80 (63.50 kg, 160.02 cm) rg5 01:00 Pain Scale: Adult rg5 02:18 Pain Scale: Adult bm8 Waka Coma Score: 02:18 Eye Response: spontaneous(4). Motor Response: obeys commands(6). Verbal Response: bm8 oriented(5). Total: 15. 07:08 Eye Response: spontaneous(4). Motor Response: obeys commands(6). Verbal Response: sp4 oriented(5). Total: 15. ED Course: 00:57 Patient arrived in ED. [email or web address] 01:00 Alfonso Handy MD is Attending Physician. sp4 01:00 Arm band placed on. rg5 01:00 Patient has correct armband on for positive identification. Fall risk band placed. Call rg5 light in reach. Side rails up X2. Client placed on continuous cardiac and pulse oximetry monitoring. NIBP monitoring applied. monitoring engineer on. Pulse ox on. NIBP on. Door closed. Noise minimized. Warm blanket given. 01:00 No provider procedures requiring assistance completed. Maintain EMS IV. Dressing rg5 intact. Good blood return noted. Site clean \T\ dry. Gauge \T\ site: 18 gauge left AC. Flushed with 10 mL NS. 01:06 Mathieu Khan, RN is Primary Nurse. rg5 01:11 Triage completed. rg5 02:18 Provided Education on: post er care. bm8 02:18 Patient maintains SpO2 saturation greater than 95% on room air. bm8 02:45 IV discontinued, intact, bleeding controlled, No redness/swelling at site. Pressure bm8 dressing applied. Administered Medications: 01:20 Drug: NS 0.9% IV 1000 ml IV at 1 bolus Per protocol; to be given as a bolus over 60 rg5 minutes Route: IV; Rate: 1 bolus; Site: left antecubital; 02:20 Follow up: Response: No adverse reaction; IV Status: Completed infusion bm8 Medication: 01:00 VIS not applicable for this client. rg5 Outcome: 02:39 Discharge ordered by . sp4 02:45 Discharged to home ambulatory, bm8 02:45 Condition: stable 02:45 Discharge instructions given to patient, family, Instructed on discharge instructions, follow up and referral plans. no drinking with medication, no driving heavy equipment, medication usage, safety practices, Demonstrated understanding of instructions, follow-up care, medications, 02:45 Patient left the ED. bm8 Signatures: Christina Hoffman j6 Alfonso Handy MD MD sp4 Honorio Underwood RN RN bm8 Mathieu Khan, RN RN rg5
--- NOTE | 2024-07-27 02:40 | EDPHYS ---
Physician Documentation [facility] Name: Iraida Kim Age: 69 yrs Sex: Female : 1955 Arrival Date: 07/27/2024 Time: 00:52 Bed 2 Private MD: ED Physician Alfonso Handy HPI: 07/27 01:00 This 69 yrs old Female presents to ER via Unassigned with complaints of sp4 Dizziness, Irregular Pulse, Near Syncope, Weakness. 07:08 Patient presents with acute hallucinations dizziness irregular pulse generalized sp4 weakness after consuming cannabis gummy. . Historical: - Allergies: 01:00 chlorhexidine (bulk); rg5 01:00 seasonal allergy; rg5 - Immunization history:: Adult Immunizations up to date. - Infectious Disease History:: Denies. - Social history:: Smoking status: Patient denies any tobacco usage or history of. - Family history:: not pertinent. ROS: 07:08 Constitutional: Negative for fever, chills, and weight loss, positive for generalized sp4 weakness, acute hallucinations, dizziness, irregular pulse. 07:08 All other systems are negative, Exam: 07:08 Constitutional: This is a well developed, well nourished patient who is awake, alert, sp4 and in no acute distress. Head/Face: Normocephalic, atraumatic. Eyes: Pupils equal round and reactive to light, extra-ocular motions intact. Lids and lashes normal. Conjunctiva and sclera are not injected. Cornea within normal limits. Periorbital areas with no swelling, redness, or edema. ENT: Nares patent. No nasal discharge, no septal abnormalities noted. Tympanic membranes are normal and external auditory canals are clear. Oropharynx with no redness, swelling, or masses, exudates, or evidence of obstruction, uvula midline. Mucous membranes moist. Neck: Trachea midline, no thyromegaly or masses palpated, and no cervical lymphadenopathy. Supple, full range of motion without nuchal rigidity, or vertebral point tenderness. Chest/axilla: Normal chest wall appearance and motion. Nontender with no deformity. No lesions are appreciated. Cardiovascular: Regular rate and rhythm with a normal S1 and S2. No gallops, murmurs, or rubs. Normal PMI, no JVD. No pulse deficits. Respiratory: Lungs have equal breath sounds bilaterally, clear to auscultation and percussion. No rales, rhonchi or wheezes noted. No increased work of breathing, no retractions or nasal flaring. Abdomen/GI: Soft, with normal bowel sounds. No distension or tympany. No guarding or rebound. No evidence of tenderness throughout. Back: No spinal tenderness. No costovertebral tenderness. Skin: Warm, dry with normal turgor. Normal color with no rashes, no lesions, and no evidence of cellulitis. MS/ Extremity: Pulses equal, no cyanosis. Neurovascular intact. Full, normal range of motion. Neuro: Awake and alert, GCS 15, oriented to person, place, time, and situation. Cranial nerves II-XII grossly intact. Motor strength 5/5 in all extremities. Sensory grossly intact. Psych: Awake, alert, with orientation to person, place and time. Behavior, mood, and affect are within normal limits 07:08 ECG was reviewed by the Attending Physician. EKG at 0 138 normal sinus rhythm, rate 83 Vital Signs: 01:00 BP 132 / 79; Pulse 92; Resp 19; Temp 97.6; Pulse Ox 100% on R/A; Weight 63.5 kg; Height rg5 5 ft. 3 in. ; Pain 0/10; 02:18 BP 132 / 85; Pulse 86; Resp 17; Temp 97.6; Pulse Ox 100% ; Pain 0/10; bm8 01:00 Body Mass Index 24.80 (63.50 kg, 160.02 cm) rg5 01:00 Pain Scale: Adult rg5 02:18 Pain Scale: Adult bm8 Flora Coma Score: 02:18 Eye Response: spontaneous(4). Motor Response: obeys commands(6). Verbal Response: bm8 oriented(5). Total: 15. 07:08 Eye Response: spontaneous(4). Motor Response: obeys commands(6). Verbal Response: sp4 oriented(5). Total: 15. MDM: 01:01 Medical Screening Exam initiated sp4 07:13 Differential diagnosis: cardiac arrhythmia, sepsis, syncope, TIA, vertigo. Data sp4 reviewed: vital signs, nurses notes, lab test result(s), EKG. 07:15 ED course: Patient improved after IV hydration. She states she is feeling better. sp4 Discharged home in improved condition. Advised to discontinue cannabis Gummies. 07/27 01:01 Order name: Basic Metabolic Panel; Complete Time: 02:30 07/27 01:01 Order name: CBC with Diff; Complete Time: 02:30 07/27 01:01 Order name: LFT's; Complete Time: 02:30 07/27 01:01 Order name: Magnesium; Complete Time: 02:30 07/27 01:01 Order name: NT PRO-BNP; Complete Time: 02:30 07/27 01:01 Order name: PT-INR; Complete Time: 02:30 07/27 01:01 Order name: Troponin HS; Complete Time: 02:30 07/27 01:01 Order name: Cardiac monitoring; Complete Time: :20 07/27 01:01 Order name: EKG - Nurse/Tech; Complete Time: 01:44 07/27 01:01 Order name: IV Saline Lock; Complete Time: :20 07/27 01:01 Order name: Labs collected and sent; Complete Time: :07/27 01:01 Order name: O2 Per Protocol; Complete Time: :07/27 01:01 Order name: O2 Sat Monitoring; Complete Time: :20 EC:38 Rate is 83 beats/min. Rhythm is regular, Normal Sinus Rhythm. QRS [place] is Normal. NV sp4 interval is normal. QRS interval is normal. QT interval is normal. No Q waves. T waves are Normal. No ST changes noted. Clinical impression: Normal ECG. Interpreted by me. Reviewed by me. Administered Medications: 01:20 Drug: NS 0.9% IV 1000 ml IV at 1 bolus Per protocol; to be given as a bolus over 60 rg5 minutes Route: IV; Rate: 1 bolus; Site: left antecubital; 02:20 Follow up: Response: No adverse reaction; IV Status: Completed infusion bm8 Disposition Summary: 07/27/24 02:39 Discharge Ordered Notes: Location: Home sp4 Problem: new sp4 Symptoms: have improved sp4 Condition: Stable sp4 Diagnosis - Acute cannabis intoxication, Near syncopal episode sp4 Followup: sp4 - With: Private Physician - When: 7 - 10 days - Reason: Recheck today's complaints Discharge Instructions: - Discharge Summary Sheet sp4 - Cannabis Use Disorder sp4 Forms: - Patient Portal Instructions sp4 Signatures: Dispatcher [employer] EDAlfonso Davies MD MD sp4 Mathieu Khan RN RN rg5 Honorio Underwood RN bm8 Corrections: (The following items were deleted from the chart) 01:02 01:01 BASIC METABOLIC PANEL+C.LAB.BRZ ordered. EDMS EDMS 01:02 01:01 CBC+H.LAB.BRZ ordered. EDMS EDMS 01:02 01:01 HEPATIC FUNCTION+C.LAB.BRZ ordered. EDMS EDMS 01:02 01:01 MAGNESIUM+C.LAB.BRZ ordered. EDMS EDMS 01:02 01:01 PROBNP+C.LAB.BRZ ordered. EDMS EDMS 01:02 01:01 PROTIME (+INR)+COAG.LAB.BRZ ordered. EDMS EDMS 01:02 01:01 Troponin High Sensitivity+C.LAB.BRZ ordered. EDMS EDMS 01:02 01:02 Chest Single View+RAD.RAD.BRZ ordered. EDMS EDMS
[2024-07-27 02:56] VITALS: TEMP 97.6; O2SAT 100
[2024-07-27 02:57] VITALS: BP 132/85
== END 2024-07-27 02:45 | disposition home or self-care (01) ==
LOC: ER 00:52
DX: F12.129 Cannabis abuse with intoxication, unspecified (principal)
CPT/HCPCS: 85025; 80048; 36415; 83735; 85610; 80076; 84484; 83880; 96360; 99285; J7030; 93005